=== PATIENT | male | born 1930 | race African-American/Black ===

== ENCOUNTER 2016-12-31 08:10 | Day surgery (SDC) | payer MEDICARE, BC ==
[~2016-12-31] VITALS: Ht 180.3 cm; Wt 72.1 kg
[~2016-12-31 08:10] MED LIST: ASPI-1159 PO; BACL-141 PO; CLOP75TA2 PO; DIGO250T4 PO; EZET10TA PO; LINZESS
[2016-12-31] MEDS ORDERED: IODIXANOL 320MG/ML 100 ML BOTTLE IV ONE (09:26)
[2016-12-31] MEDS ORDERED: LIDOCAINE HCL 1% 20ML VIAL (Pyxis) INJ ONE (09:26)
[2016-12-31] MEDS ORDERED: MIDAZOLAM HCL 2 MG/2 ML VIAL ONE (09:52)
[2016-12-31] MEDS ORDERED: FENTANYL CITRATE/PF 50MCG/ML 2ML VIAL ONE (09:52)
[2016-12-31] MEDS ORDERED: HEPARIN SODIUM 1,000 UNIT/1ML VIAL IV ONE (09:59)
[2016-12-31] MEDS ORDERED: NICARDIPINE 100MCG/ML 10ML VIAL (CATH LAB) IV ONE (14:02)
[2016-12-31] MEDS ORDERED: NITROGLYCERIN 50MCG/ML 10ML VIAL (CATH LAB) IV ONE (14:02)
== END 2016-12-31 14:50 | disposition home or self-care (01) ==
LOC: CCL 08:10
PROVIDERS: ATTEND Specialist
DX: I25.10 Atherosclerotic heart disease of native coronary artery without angina pectoris (principal); I25.2 Old myocardial infarction; Z86.73 Personal history of transient ischemic attack (TIA), and cerebral infarction without residual deficits; Z95.810 Presence of automatic (implantable) cardiac defibrillator; Z95.5 Presence of coronary angioplasty implant and graft; Z98.890 Other specified postprocedural states; Z79.01 Long term (current) use of anticoagulants; Z79.82 Long term (current) use of aspirin; Z79.899 Other long term (current) drug therapy
CPT/HCPCS: 93455; 99152; 99153; C1769; C1893; J1644; J2250; J3010; J3490; Q9967

== ENCOUNTER 2016-12-31 18:15 | Emergency (ER) | payer MEDICARE, BC ==
[~2016-12-31] VITALS: Ht 180.3 cm; Wt 69.0 kg
[2016-12-31 22:20] VITALS: BP 132/75
== END 2016-12-31 22:25 | disposition home or self-care (01) ==
LOC: ER 22:17
DX: L76.32 Postprocedural hematoma of skin and subcutaneous tissue following other procedure (principal); Y83.8 Other surgical procedures as the cause of abnormal reaction of the patient, or of later complication, without mention of misadventure at the time of the procedure; Y82.8 Other medical devices associated with adverse incidents; Y92.89 Other specified places as the place of occurrence of the external cause; Z79.82 Long term (current) use of aspirin; I10 Essential (primary) hypertension; Z86.73 Personal history of transient ischemic attack (TIA), and cerebral infarction without residual deficits; I25.10 Atherosclerotic heart disease of native coronary artery without angina pectoris; Z95.0 Presence of cardiac pacemaker
CPT/HCPCS: 99283

== ENCOUNTER 2017-08-10 09:27 | Inpatient (IN) | payer MEDICARE, BC ==
[~2017-08-10] VITALS: Ht 180.3 cm; Wt 70.3 kg
[~2017-08-10 09:27] MED LIST changes: -BACL-141 PO; +CLOP75TA16 PO; -CLOP75TA2 PO; -EZET10TA PO; +ZET10 PO
[2017-08-10 10:08] LABS: BASOPHILS % 0.3 % (0.0-2.0); EOSINOPHILS % 1.7 % (0.0-5.0); HEMATOCRIT. 39.5 % (42.0-52.0); HEMOGLOBIN. 13.3 g/dL (14.0-18.0); LYMPHOCYTES % 15.8 % (20.0-50.0); MEAN CORPUSCULAR HEMOGLOBIN 32.2 pg (28.0-32.0); MEAN CORPUSCULAR VOLUME 95.6 fL (80.0-94.0); MEAN PLATELET VOLUME 7.2 fl (7.4-10.4); MONOCYTES % 8.5 % (2.0-8.0); NEUTROPHILS % 73.7 % (40.0-76.0); PLATELET 194 x1000/uL (130-400); RED BLOOD CELL COUNT 4.13 mill/uL (4.7-6.1); RED CELL DISTRIBUTION WIDTH 12.4 % (11.6-14.6)
[2017-08-10 10:14] LABS: INR 1.1
[2017-08-10 10:23] LABS: CHLORIDE 103 mEq/L (98-107)
[2017-08-10] MEDS: ASPIRIN 81MG EC TABLET PO SCH (13:00)
[2017-08-10] MEDS: CLOPIDOGREL 75MG TABLET PO SCH (13:00)
[2017-08-10 13:30] VITALS: BP 123/69
[2017-08-10 16:00] VITALS: BP_SYST 120; BP_SYST 121; BP_SYST 122; BP_DIAS 60; BP_DIAS 62
[2017-08-10] MEDS: DIGOXIN 250MCG TABLET PO SCH (18:00)
[2017-08-10 20:13] VITALS: BP_SYST 102; BP_SYST 107; BP_SYST 108; BP_DIAS 39; BP_DIAS 44; BP_DIAS 59
[2017-08-10] MEDS: EZETIMIBE 10MG TABLET PO SCH (21:28)
[2017-08-11 00:51] VITALS: BP 98/52
[2017-08-11 04:00] VITALS: BP 107/55
[2017-08-11 06:30] LABS: BASOPHILS % 0.3 % (0.0-2.0); EOSINOPHILS % 2.8 % (0.0-5.0); HEMATOCRIT. 36.5 % (42.0-52.0); HEMOGLOBIN. 12.5 g/dL (14.0-18.0); MEAN CORPUSCULAR HEMOGLOBIN 32.7 pg (28.0-32.0); MEAN CORPUSCULAR VOLUME 95.3 fL (80.0-94.0); MEAN PLATELET VOLUME 7.7 fl (7.4-10.4); MONOCYTES % 8.9 % (2.0-8.0); PLATELET 171 x1000/uL (130-400); RED BLOOD CELL COUNT 3.83 mill/uL (4.7-6.1); RED CELL DISTRIBUTION WIDTH 12.5 % (11.6-14.6)
[2017-08-11 07:06] LABS: CHLORIDE 101 mEq/L (98-107)
[2017-08-11 07:12] LABS: DIGOXIN 0.5 ng/mL (0.9-2.0)
[2017-08-11 08:00] VITALS: BP_SYST 114; BP_SYST 115; BP_DIAS 63; BP_DIAS 71
[2017-08-11] MEDS: ASPIRIN 81MG EC TABLET PO SCH (09:01)
[2017-08-11] MEDS: CLOPIDOGREL 75MG TABLET PO SCH (09:02)
[2017-08-11 12:00] VITALS: BP_SYST 110; BP_SYST 112; BP_DIAS 61; BP_DIAS 66
[2017-08-11] MEDS ORDERED: MAGNESIUM HYDROXIDE 400MG/5ML 30ML UDC PO PRN (14:45)
[2017-08-11 16:00] VITALS: BP_SYST 122; BP_SYST 125; BP_DIAS 65; BP_DIAS 76
[2017-08-11] MEDS: DIGOXIN 250MCG TABLET PO SCH (18:30)
[2017-08-11 20:00] VITALS: BP_SYST 116; BP_SYST 119; BP_SYST 122; BP_DIAS 56; BP_DIAS 61; BP_DIAS 75
[2017-08-11] MEDS ORDERED: NA PHOS,M-B/NA PHOS,DI-BA ENEMA 118ML PR PRN (21:15)
[2017-08-11] MEDS: EZETIMIBE 10MG TABLET PO SCH (21:31)
[2017-08-12] VITALS: BP 101/61
[2017-08-12 04:00] VITALS: BP 118/63
[2017-08-12 06:43] LABS: BASOPHILS % 0.3 % (0.0-2.0); EOSINOPHILS % 2.2 % (0.0-5.0); HEMATOCRIT. 36.6 % (42.0-52.0); HEMOGLOBIN. 12.8 g/dL (14.0-18.0); LYMPHOCYTES % 25.8 % (20.0-50.0); MEAN CORPUSCULAR HEMOGLOBIN 32.8 pg (28.0-32.0); MEAN CORPUSCULAR VOLUME 93.7 fL (80.0-94.0); MEAN PLATELET VOLUME 7.5 fl (7.4-10.4); NEUTROPHILS % 62.7 % (40.0-76.0); PLATELET 176 x1000/uL (130-400); RED CELL DISTRIBUTION WIDTH 12.3 % (11.6-14.6)
[2017-08-12 07:24] LABS: CHLORIDE 104 mEq/L (98-107)
[2017-08-12 08:00] VITALS: BP_SYST 107; BP_SYST 115; BP_SYST 120; BP_DIAS 59; BP_DIAS 67; BP_DIAS 71
[2017-08-12] MEDS: CLOPIDOGREL 75MG TABLET PO SCH (09:15)
[2017-08-12] MEDS: ASPIRIN 81MG EC TABLET PO SCH (09:15)
[2017-08-12 12:00] VITALS: BP_SYST 121; BP_SYST 124; BP_SYST 99; BP_DIAS 44; BP_DIAS 60; BP_DIAS 65
[2017-08-12] MEDS ORDERED: IOHEXOL-350 100 ML BOTTLE ONE (12:17)
[2017-08-12 16:00] VITALS: BP_SYST 106; BP_SYST 113; BP_DIAS 60; BP_DIAS 63
[2017-08-12] MEDS: DIGOXIN 250MCG TABLET PO SCH (19:25)
[2017-08-12 20:00] VITALS: BP 118/73
[2017-08-12] MEDS: EZETIMIBE 10MG TABLET PO SCH (22:37)
[2017-08-13] VITALS: BP 114/66
[2017-08-13 04:00] VITALS: BP 99/64
[2017-08-13 07:40] VITALS: BP 117/63
[2017-08-13] MEDS: ASPIRIN 81MG EC TABLET PO SCH (09:02)
[2017-08-13] MEDS: CLOPIDOGREL 75MG TABLET PO SCH (09:02)
[2017-08-13 09:41] LABS: *AMPHETAMINES SCREEN URINE NEGATIVE (NEGATIVE); *BARBITURATES SCREEN URINE NEGATIVE (NEGATIVE); *BENZODIAZEPINES SCREEN URINE NEGATIVE (NEGATIVE); *COCAINE SCREEN URINE NEGATIVE (NEGATIVE); CANNABINOID URINE SCREEN NEGATIVE (NEGATIVE); METHADONE URINE SCREEN NEGATIVE (NEGATIVE); OPIATES URINE SCREEN NEGATIVE (NEGATIVE); PHENCYCLIDINE URINE SCREEN NEGATIVE (NEGATIVE)
[2017-08-13 11:20] VITALS: BP 113/62
[2017-08-13 14:19] VITALS: BP 113/62
[2017-11-27] MEDS ORDERED: METO25TA6 PO (13:45)
[2017-11-27] MEDS ORDERED: MULT-1146 PO (13:45)
[2017-11-27] MEDS ORDERED: MIDO10TA PO (13:45)
== END 2017-08-13 14:58 | disposition home or self-care (01) | DRG 312 ==
LOC: ER 09:46 → 5WST 10:38 → EDBEDREQ 10:39 → CANRESERV 10:52 → ENRESERV 10:52
PROVIDERS: ADMIT Specialist; ATTEND Specialist
DX: I95.1 Orthostatic hypotension (principal); I47.2 Ventricular tachycardia; I69.351 Hemiplegia and hemiparesis following cerebral infarction affecting right dominant side; I65.29 Occlusion and stenosis of unspecified carotid artery; I11.9 Hypertensive heart disease without heart failure; I10 Essential (primary) hypertension; R55 Syncope and collapse; I95.9 Hypotension, unspecified; Z95.1 Presence of aortocoronary bypass graft; E78.5 Hyperlipidemia, unspecified; W19.XXXA Unspecified fall, initial encounter; I25.5 Ischemic cardiomyopathy; I25.10 Atherosclerotic heart disease of native coronary artery without angina pectoris; Z95.810 Presence of automatic (implantable) cardiac defibrillator; I25.2 Old myocardial infarction; Z79.82 Long term (current) use of aspirin; Z79.899 Other long term (current) drug therapy
CPT/HCPCS: 36415; 70496; 71045; 80048; 80162; 80305; 83735; 83880; 84484; 93005; 93306; 97162; 97166; 99285; G0482; Q9967

== ENCOUNTER 2021-05-07 10:22 | Inpatient (IN) | payer BC ==
[~2021-05-07] VITALS: Ht 182.9 cm; Wt 66.2 kg
[~2021-05-07 10:22] MED LIST changes: -ASPI-1159 PO; +ASPI-1497 PO; +CLOP-31 PO; -CLOP75TA16 PO; -DIGO250T4 PO; +EZET10TA13 PO; +METO25TA6 PO; +MIDO10TA PO; +MULT-1146 PO; -ZET10 PO
[2021-05-07 13:03] LABS: BASOPHILS % 0.3 % (0.0-2.0); EOSINOPHILS % 0.5 % (0.0-5.0); HEMATOCRIT. 38.6 % (42.0-52.0); HEMOGLOBIN. 12.9 g/dL (14.0-18.0); LYMPHOCYTES % 9.3 % (20.0-50.0); MEAN CORPUSCULAR HEMOGLOBIN 33.5 pg (28.0-32.0); MEAN CORPUSCULAR VOLUME 99.9 fL (80.0-94.0); MONOCYTES % 6.7 % (2.0-8.0); NEUTROPHILS % 83.2 % (40.0-76.0); RED BLOOD CELL COUNT 3.87 mill/uL (4.7-6.1); RED CELL DISTRIBUTION WIDTH 12.8 % (11.6-14.6)
[2021-05-07 13:07] LABS: CHLORIDE 107 mEq/L (98-107)
[2021-05-07 13:29] LABS: PLATELET ESTIMATE NORMAL
[2021-05-07 13:30] LABS: MEAN PLATELET VOLUME 8.1 fl (7.4-10.4); PLATELET 189 x1000/uL (130-400)
[2021-05-07] MEDS ORDERED: SODIUM CHLORIDE 0.9% 1,000 ML IV ONE (13:45)
[2021-05-07] MEDS ORDERED: DEXTROSE 50% WATER 50ML SYRINGE IV ONE (13:45)
[2021-05-07] MEDS ORDERED: INSULIN REGULAR (HUMULIN R) 300UNITS/3ML VIAL IV ONE (13:45)
[2021-05-07 14:31] LABS: CLARITY URINE CLEAR (CLEAR); COLOR URINE YELLOW (YELLOW); KETONES URINE NEGATIVE (NEGATIVE); LEUKOCYTE ESTERASE URINE NEGATIVE (NEGATIVE); NITRITE URINE NEGATIVE (NEGATIVE); OCCULT BLOOD URINE NEGATIVE (NEGATIVE); PROTEIN URINE NEGATIVE (NEGATIVE); SPECIFIC GRAVITY URINE 1.023 (1.005-1.030); UROBILINOGEN URINE 0.2 E.U./dL (0.2-1.0)
[2021-05-07] MEDS ORDERED: MAGNESIUM/ALUMINUM HYDROXIDE/SIMETHICONE 30ML UDC PO PRN (17:15)
[2021-05-07] MEDS ORDERED: CLONIDINE 0.1MG TABLET PO PRN (17:15)
[2021-05-07] MEDS ORDERED: ONDANSETRON HCL 4MG/2ML INJ IV PRN (17:15)
[2021-05-07] MEDS ORDERED: DOCUSATE SODIUM 100MG CAPSULE PO PRN (17:15)
[2021-05-07] MEDS ORDERED: GUAIFENESIN 200MG/10ML SUGAR FREE UDC PO PRN (17:15)
[2021-05-07] MEDS ORDERED: ACETAMINOPHEN 325MG TABLET PO PRN (17:15)
[2021-05-07] MEDS: SODIUM CHLORIDE 0.45% 1,000 ML IV SCH (17:15)
[2021-05-07] MEDS ORDERED: SODIUM POLYSTYRENE SULFONATE 15 G/60 ML BOT PO NR (17:30)
[2021-05-07] MEDS: ENOXAPARIN 40MG/0.4ML SYR SUBCUT SCH (19:00)
[2021-05-07] MEDS: CLOPIDOGREL 75MG TABLET PO SCH (19:14)
[2021-05-07] MEDS: EZETIMIBE 10MG TABLET PO SCH (21:40)
[2021-05-07 22:03] VITALS: BP 112/68
[2021-05-08] MEDS: SODIUM CHLORIDE 0.45% 1,000 ML IV SCH ×2 (07:01→18:41)
[2021-05-08 08:00] VITALS: BP 120/60
[2021-05-08] MEDS: CLOPIDOGREL 75MG TABLET PO SCH (08:36)
[2021-05-08 10:25] LABS: BASOPHILS % 0.4 % (0.0-2.0); EOSINOPHILS % 2.6 % (0.0-5.0); HEMATOCRIT. 37.2 % (42.0-52.0); HEMOGLOBIN. 12.6 g/dL (14.0-18.0); LYMPHOCYTES % 22.7 % (20.0-50.0); MEAN CORPUSCULAR VOLUME 100.7 fL (80.0-94.0); MEAN PLATELET VOLUME 7.4 fl (7.4-10.4); MONOCYTES % 7.2 % (2.0-8.0); NEUTROPHILS % 67.1 % (40.0-76.0); PLATELET 163 x1000/uL (130-400); RED BLOOD CELL COUNT 3.69 mill/uL (4.7-6.1); RED CELL DISTRIBUTION WIDTH 12.9 % (11.6-14.6)
[2021-05-08 11:32] LABS: CHLORIDE 108 mEq/L (98-107)
[2021-05-08 11:40] LABS: LDL CHOLESTEROL 66 mg/dL (5-100)
[2021-05-08 11:41] LABS: HDL CHOLESTEROL 61 mg/dL (40-59)
[2021-05-08 12:00] VITALS: BP 121/71
[2021-05-08] MEDS ORDERED: NON FORMULARY PATIENT HOME MED PO SCH ×2 (14:00)
[2021-05-08 16:00] VITALS: BP_SYST 112; BP_SYST 116; BP_DIAS 62; BP_DIAS 74
[2021-05-08] MEDS: MIDODRINE HCL 5MG TABLET PO SCH (18:37)
[2021-05-08] MEDS: ENOXAPARIN 40MG/0.4ML SYR SUBCUT SCH (18:39)
[2021-05-08] MEDS: MEXILETINE PO SCH (18:39)
[2021-05-08] MEDS: METOPROLOL TARTRATE 25MG TABLET PO SCH (18:39)
[2021-05-08 20:00] VITALS: BP 109/64
[2021-05-08] MEDS: EZETIMIBE 10MG TABLET PO SCH (22:38)
[2021-05-09] VITALS: BP 117/63
[2021-05-09 04:00] VITALS: BP_SYST 118; BP_SYST 132; BP_DIAS 68; BP_DIAS 73
[2021-05-09 08:00] VITALS: BP 111/56
[2021-05-09] MEDS: METOPROLOL TARTRATE 25MG TABLET PO SCH (09:00)
[2021-05-09] MEDS: MEXILETINE PO SCH (09:34)
[2021-05-09] MEDS: CLOPIDOGREL 75MG TABLET PO SCH (09:35)
[2021-05-09] MEDS: MIDODRINE HCL 5MG TABLET PO SCH ×2 (09:36→13:00)
[2021-05-09] MEDS: SODIUM CHLORIDE 0.45% 1,000 ML IV SCH (09:36)
[2021-05-09 12:00] VITALS: BP 126/70
[2021-05-09 16:00] VITALS: BP 105/62
[2021-05-09 17:01] VITALS: BP 105/62
== END 2021-05-09 17:28 | disposition home or self-care (01) | DRG 74 ==
LOC: ER 10:22 → 8WST 14:40 → EDBEDREQTM 14:48 → EDBEDREQ 14:48 → ENRESERV 19:16
PROVIDERS: ADMIT Hospitalist; ATTEND Hospitalist
PROC: 4B02XTZ Measurement of Cardiac Defibrillator, External Approach (ICD-10-PCS; principal; 2021-05-08)
DX: G90.8 Other disorders of autonomic nervous system (principal); I42.9 Cardiomyopathy, unspecified; I47.2 Ventricular tachycardia; I69.351 Hemiplegia and hemiparesis following cerebral infarction affecting right dominant side; E78.5 Hyperlipidemia, unspecified; E86.0 Dehydration; E87.5 Hyperkalemia; I25.10 Atherosclerotic heart disease of native coronary artery without angina pectoris; I25.82 Chronic total occlusion of coronary artery; I10 Essential (primary) hypertension; R56.9 Unspecified convulsions; I34.0 Nonrheumatic mitral (valve) insufficiency; I36.1 Nonrheumatic tricuspid (valve) insufficiency; Z95.1 Presence of aortocoronary bypass graft; I25.2 Old myocardial infarction; Z95.810 Presence of automatic (implantable) cardiac defibrillator; Z79.82 Long term (current) use of aspirin; Z79.899 Other long term (current) drug therapy
CPT/HCPCS: 36415; 71045; 80053; 80061; 81003; 82962; 84484; 85025; 93005; 93306; 93970; 99285; A6261; J1650; J1815; J7030